=== PATIENT | female | born 1995 | race Caucasian/White ===

== ENCOUNTER → 2017-01-02 | Outpatient (CLI) | payer OTHER ==
[2017-01-02 13:00] LABS: BASO % 0.9 %; BASO ABS # 0.06 K/uL (0-0.2); COMPLETE YES; HEMATOCRIT 39.7 % (37-47); IG% 0.1 %; LYMPH % 38.8 %; LYMPH ABS # 2.59 K/uL (1.2-3.4); MEAN CELL VOLUME 86.1 fL (80-100); MEAN CORPUSCULAR HEMOGLOBIN 29.1 pg (25-34); MEAN CORPUSCULAR HGB CONC 33.8 g/dl (32-36); MEAN PLATELET VOLUME 9.7 fL (7.4-10.4); MONO % 10.5 %; NEUT % 45.7 %; PLATELET COUNT 318 K/uL (130-400); RED BLOOD COUNT 4.61 M/uL (4.2-5.4); WHITE BLOOD COUNT 6.67 K/uL (4.8-10.8)
== END | disposition home or self-care (01) ==
LOC: C.LABMFLN 11:12
PROVIDERS: ATTEND Family Medicine
DX: R59.0 Localized enlarged lymph nodes (principal)

== ENCOUNTER 2023-09-25 07:44 | Inpatient (IN) ==
[2023-09-25] MEDS ORDERED: LIDOCAINE 1% LOCAL 20 ML VIAL INFIL PRN (09:05)
[2023-09-25] MEDS ORDERED: ACETAMINOPHEN 325 MG TAB PO PRN ×2 (09:05→23:27)
[2023-09-25] MEDS ORDERED: ALBUTEROL HFA 8 GM INHALER INH PRN (09:07)
[2023-09-25] MEDS: LACTATED RINGER'S 1,000 ML IV PRN (09:51)
[2023-09-25] MEDS: PENICILLIN GK 6 MU in DEXTROSE 5% 250 ML IV STA (09:51)
[2023-09-25 09:57] LABS: Hematocrit (blood only) 41.2 % (37.0-47.0); Hemoglobin 14.1 g/dl (12.0-16.0); Mean Corpuscular Hemoglobin 30.5 pg (25.0-34.0); Mean Corpuscular Hgb Conc 34.2 g/dL (32.0-36.0); Mean Corpuscular Volume 89.2 fL (80.0-100.0); Mean Platelet Volume 11.6 fL (9.4-12.4); Platelet Count 206 K/uL (130-400); RDW Coefficient of Variation 13.4 % (11.5-14.5); RDW Standard Deviation 43.6 fL (36.4-46.3); Red Blood Count 4.62 M/uL (4.20-5.40); White Blood Count 10.65 K/ul (4.8-10.8)
[2023-09-25] MEDS: OXYTOCIN 30 UNITS/NSS 30 UNITS/500 ML BAG IV PRN ×2 (10:00→23:08)
--- NOTE | 2023-09-25 11:07 | History & Physical Report ---
Date of Service September 25, 2023 Assessment & Plan (1) Post term at 41 weeks gestation: Plan: Primigravida female presents for induction of labor because of postterm at 41 weeks. A cervical balloon was placed successfully and Pitocin induction per labor and delivery protocol was begun. Penicillin G prophylaxis has been begun as well. Epidural if requested. Anticipate vaginal . Admission and Anticipated Discharge Date Admission Date: September 25, 2023 History of Present Illness Primary Care Provider: Edgar Kenny MD Patient is a 27-year-old G1, P0 female EDC 09/18/2023 who presents at 41-0/7 weeks for induction because of postterm . has otherwise been uncomplicated. Blood type is O+. GBS is positive. Allergies Allergy/AdvReac Type Severity Reaction Status Date / Time clindamycin Allergy Intermediate Rash Verified 09/25/23 08:50 Home Medications Medication Instructions Recorded Confirmed Type albuterol sulfate 90 mcg/actuation 2 inh inhalation Q4H PRN mild 02/12/22 09/25/23 Rx aerosol inhaler intermittent asthma #18 grams loratadine PO 02/05/23 09/24/23 History 21-iron fu-folic acid 1 tab PO DAILY 02/05/23 09/25/23 History [ Complete] hydrocortisone 2.5 % topical cream 1 applic topical BID PRN skin 02/13/23 09/25/23 Rx irritation #453.6 grams omeprazole magnesium [Prilosec OTC] PO 07/21/23 09/24/23 History Nexium 1 tab PO DAILY 09/25/23 09/25/23 History Patient History Medical History Left otitis media Allergic rhinitis Allergic rhinitis Dysfunctional uterine bleeding Mild intermittent asthma in adult without complication Surgical History Hx of lymph node excision History of tonsillectomy No pertinent past surgical history Family History Mother Ldsta-5-sffdltsndmjawtur deficiency Denies family history of Ovarian cancer Breast cancer Colorectal cancer Social History Smoking Status: Never smoker Do You Dip or Chew Tobacco: No; Hx Alcohol Use: No Hx Substance Use: No Preferred Language: Pakistani Communication Ability: Effective Pipeman Required: No Beliefs That Will Affect Care: None marital status: marital status details: David Baxter (29) [phone] Current Living Situation: Spouse Current Living Situation Comment: Patient lives with spouse, dog current occupational status: employed current occupation: [employer] Feels Safe at Home: Yes Safety Concerns: Feels Safe At This Time Dental Care, Regularly: No Physical Activity Frequency: Does not Exercise Seatbelt Use: always Sunscreen Use: No Review of Systems All systems reviewed & are unremarkable except as noted in HPI & below Physical Exam Constitutional: WD/WN, vitals as above Psychiatric: A+Ox3, euthymic affect Genitourinary: OB Exam Abdomen: + fundal height (term) and + estimated weight (7-8 pounds) Manual OB Exam: + cervical dilation 2 cm, + cervical effacement 70% and + station -1 OB Exam Monitor Tracing: + external FHT monitor used, + external uterine monitor used, + category I and + normal FHT variability Speculum was placed in the cervix visualized. A El catheter was then threaded through the cervical os. 40 cc of sterile water was then instilled into the El balloon. The speculum was then removed, and the catheter placed on traction and secured to her left thigh. She tolerated the procedure well. Results & Data Vital Signs (Past 12 Hours) Vital Signs Temp Pulse Resp BP 09/25/23 09:56 88 133/83 09/25/23 08:29 99.0 F 137 H 20 117/88 09/25/23 08:02 137 H 117/88 09/25/23 08:01 20 09/25/23 08:01 99.0 F 20 Code Status & VTE Plan VTE Prophylaxis Plan VTE Prophylaxis will be ordered: No Coding Level of Care Code 36694 INT INP/OBS CARE MIN Diagnoses Post term at 41 weeks gestation O48.0; Z3A.41 CPT Codes Misx Procedure Codes - 70433 Placement of cervical dilator: 94422 Placement of c ervical dilator ([id number])
[2023-09-25] MEDS: PENICILLIN GK 3 MU in DEXTROSE 5% 100 ML IV PRN (13:51)
[2023-09-25] MEDS: ONDANSETRON INJ 2 MG/ML 2 ML VIAL IV PRN (16:07)
[2023-09-25] MEDS: LIDOCAINE 2%/EPINEPHRINE 1:200,000 20 ML PF ONE (17:19)
[2023-09-25] MEDS: BUPIVACAINE 0.25% PF 30 ML VIAL ONE (17:19)
[2023-09-25] MEDS: fentANYL 2 MCG/ML BUPIVacaine 0.125%-NSS 100ML BAG ONE (17:26)
--- NOTE | 2023-09-25 17:30 | Anesthesiology Consultation ---
Date of Service September 25, 2023 Assessment & Plan Chart Review Chart Review: Acceptable Risk for Labor Epidural Consults Requested none History Height/Weight Height: 5 ft 9 in Weight: 90.265 kg Allergies Allergy/AdvReac Type Severity Reaction Status Date / Time clindamycin Allergy Intermediate Rash Verified 09/25/23 08:50 Medications Home Medications Medication Instructions Recorded Confirmed Last Taken albuterol sulfate 90 mcg/actuation 2 inh inhalation Q4H PRN mild 02/12/22 09/25/23 Unknown aerosol inhaler intermittent asthma #18 grams loratadine PO 02/05/23 09/24/23 09/24/23 21:00 21-iron fu-folic acid 1 tab PO DAILY 02/05/23 09/25/23 09/24/23 21:00 [ Complete] hydrocortisone 2.5 % topical cream 1 applic topical BID PRN skin 02/13/23 09/25/23 Unknown irritation #453.6 grams omeprazole magnesium [Prilosec OTC] PO 07/21/23 09/24/23 Unknown Nexium 1 tab PO DAILY 09/25/23 09/25/23 09/24/23 07:00 Active Medications Generic Name Dose Route Start Last Admin Trade Name Freq PRN Reason Stop Dose Admin Lactated Ringer's 1,000 mls @ 125 mls/hr 09/25/23 09:05 09/25/23 17:13 Lr IV 09/27/23 09:04 999 mls/hr .Q8H PRN Administration L&D Protocol Protocol Penicillin G Potassium 3 mu/ 106 mls @ 100 mls/hr 09/25/23 12:05 09/25/23 13:51 Dextrose IV 10/05/23 12:04 100 mls/hr Q4H PRN Administration GBS(+) Until Delivery Oxytocin 30 units in 500 mls @ 8 mls/hr 09/25/23 09:11 09/25/23 16:15 Pitocin 30 Units/Nss IV 09/27/23 09:10 0.48 units/hr .Q24H PRN 8 mls/hr Labor Induction/Augmentation Titration Protocol 0.48 UNITS/HR Ondansetron HCl 4 mg 09/25/23 15:53 09/25/23 16:07 Ondansetron Inj 2 Mg/Ml 2 Ml Vial IV 10/25/23 15:52 4 mg Q6H PRN Administration Nausea And Vomiting Past Medical History Medical History Left otitis media Allergic rhinitis Allergic rhinitis Dysfunctional uterine bleeding Mild intermittent asthma in adult without complication Past Family History Family History Mother Fjpfu-1-iapmgusflybiwfyp deficiency Denies family history of Ovarian cancer Breast cancer Colorectal cancer Past Surgical History Surgical History Hx of lymph node excision History of tonsillectomy No pertinent past surgical history Social History Smoking Status: Never smoker Do You Dip or Chew Tobacco: No Hx Alcohol Use: No Hx Substance Use: No Physical Exam Vital Signs Last Vital Signs Temp 37.0 C 09/25/23 15:42 Pulse 92 H 09/25/23 17:29 Resp 18 09/25/23 15:42 BP 120/74 09/25/23 17:29 Pulse Ox 94 09/25/23 17:24 Testing Laboratory Results 09/25/23 09:41
[2023-09-25] MEDS ORDERED: ROPIVACAINE 0.5% PF 5 MG/ML 20 ML VIAL EPI PRN (17:31)
[2023-09-25] MEDS ORDERED: NALOXONE HCL 0.4 MG/1 ML VIAL/CARP IV PRN (17:31)
[2023-09-25] MEDS ORDERED: fentaNYL citrate PF 100 MCG/2 ML VIAL EPI PRN (17:31)
[2023-09-25] MEDS ORDERED: fentANYL 2 MCG/ML BUPIVacaine 0.125%-NSS 100ML BAG EPI PRN (17:31)
[2023-09-25] MEDS ORDERED: LIDOCAINE 2% MPF LOCAL 5 ML VIAL EPI PRN (17:31)
[2023-09-25] MEDS ORDERED: NALBUPHINE HCL 5 MG in SYRINGE 0 ML IV PRN (17:31)
[2023-09-25] MEDS ORDERED: ePHEDrine sulfate 50 MG/ML AMP IV PRN (17:31)
[2023-09-25] MEDS ORDERED: SODIUM CHLORIDE 0.9% PF INJ 10 ML VIAL EPI PRN (17:31)
[2023-09-25] MEDS ORDERED: BUPIVACAINE 0.25% PF 30 ML VIAL EPI PRN (17:31)
[2023-09-25] MEDS: SODIUM CHLORIDE 0.9% PF INJ 10 ML VIAL ONE (17:31)
[2023-09-25] MEDS ORDERED: NALOXONE HCL 1 MG in SODIUM CHLORIDE 0.9% 1,000 ML IV PRN (17:31)
[2023-09-25] MEDS ORDERED: diphenhydrAMINE 50 MG/ML VIAL IV PRN (17:31)
[2023-09-25] MEDS: fentaNYL citrate PF 100 MCG/2 ML VIAL ONE (17:32)
[2023-09-25] MEDS: BUTORPHANOL TARTRATE 2 MG/ML VIAL IV ONE (17:32)
[2023-09-25] MEDS: LIDOCAINE 2%/EPINEPHRINE 1:200,000 20 ML PF EPI STA (18:01)
[2023-09-25] MEDS: BUPIVACAINE 0.25% PF 30 ML VIAL EPI STA (18:01)
[2023-09-25] MEDS: fentaNYL citrate PF 100 MCG/2 ML VIAL EPI STA (18:01)
[2023-09-25] MEDS: SODIUM CHLORIDE 0.9% PF INJ 10 ML VIAL EPI STA (18:01)
[2023-09-25] MEDS: ePHEDrine sulfate 50 MG/ML AMP ONE (19:45)
[2023-09-25] MEDS ORDERED: OXYTOCIN 30 UNITS/NSS 30 UNITS/500 ML BAG IV PRN (23:27)
[2023-09-25] MEDS ORDERED: HYDROCORTISONE ACETATE 25 MG SUPP PR PRN (23:27)
[2023-09-25] MEDS: CALCIUM CARBONATE 500 MG CHEWABLE TAB PO PRN (23:27)
[2023-09-25] MEDS ORDERED: oxyCODONE/ACETAMINOPHEN 5mg/325mg TAB PO PRN (23:27)
[2023-09-25] MEDS ORDERED: BENZOCAINE 20% SPRY 85 APPLN/85 GM CAN EXT PRN (23:27)
--- NOTE | 2023-09-25 23:40 | Delivery Summary ---
Vaginal Delivery Summary Date of Service September 25, 2023 Vaginal Delivery Summary , 2nd Degree LAC (bilateral sulcal tears) and 3rd Degree LAC (partial) Patient is a 27-year-old 1 P0 female who presented for postdates induction. She received a cervical balloon and Pitocin induction per labor and delivery protocol was begun on admission. After the balloon was expelled, membranes were ruptured for clear fluid. She received effective epidural analgesia. She progressed to full dilation and pushed effectively over intact perineum for delivery of a viable female infant. After the head was delivered nuchal cord x 2 was reduced. The rest of the infant delivered without maternal effort. She was placed on the mother's abdomen for further attention and drying. She was vigorous and crying with stimulation. After 1 minute, the cord was clamped and cut. After cord blood was obtained, the placenta was initially delivering spontaneously, but gentle traction on the cord revealed no further movement of the placenta. it Was noted to be trapped in the cervix and was manu ally removed intact with a three-vessel cord. bleeding was controlled with fundal massage and dilute Pitocin. Bilateral sulcal tears and a partial third-degree tear was repaired with 2-0 chromic and 3-0 chromic in the usual fashion. QBL was 1140 mls. Mother and were doing well after delivery. [facility] [place] Vaginal Delivery Charge Delivery Type Details: , 2nd Degree LAC (bilateral sulcal tears) and 3rd Degree LAC (partial)
[2023-09-26] MEDS: DIPHTHER/TETAN/PERTUS Vaccine (Tdap, Adol/Adult) 0.5mL IM ONE (00:28)
[2023-09-26] MEDS ORDERED: METHYLERGONOVINE MALEATE 0.2 MG/ML AMP ONE (04:40)
[2023-09-26 17:40] LABS: Hematocrit (blood only) 34.8 % (37.0-47.0); Hemoglobin 11.9 g/dl (12.0-16.0); Mean Corpuscular Hemoglobin 30.4 pg (25.0-34.0); Mean Corpuscular Hgb Conc 34.2 g/dL (32.0-36.0); Mean Corpuscular Volume 88.8 fL (80.0-100.0); Mean Platelet Volume 11.8 fL (9.4-12.4); Platelet Count 184 K/uL (130-400); RDW Coefficient of Variation 13.3 % (11.5-14.5); RDW Standard Deviation 43.4 fL (36.4-46.3); Red Blood Count 3.92 M/uL (4.20-5.40); White Blood Count 19.17 K/ul (4.8-10.8)
[2023-09-26] MEDS: IBUPROFEN 600 MG TAB PO PRN (20:22)
[2023-09-26] MEDS: bisacodyL 5 MG TABEC PO SCH (20:22)
[2023-09-26] MEDS: DOCUSATE SODIUM 100 MG CAP PO SCH (20:22)
[2023-09-27 08:00] LABS: Hematocrit (blood only) 30.5 % (37.0-47.0); Hemoglobin 10.1 g/dl (12.0-16.0)
--- NOTE | 2023-09-27 08:19 | Obstetrical Progress Note ---
Date of Service <Gama Hernandez DO - Last Filed: 09/27/23 08:19> September 27, 2023 Assessment & Plan <Gama Hernandez DO - Last Filed: 09/27/23 08:19> (1) Encounter for assessment: Patient is PPD 2 s/p and PPH and doing well - Eating well, voiding well, ambulating well - vitals reviewed and within normal limits - pain well controlled with analgesics - Bleeding has decreased significantly - OOB, ambulation, diet progression as tolerated - Blood type: O+, GBS pos, rubella immune - Plan to discharge today - After discharge, 6 week follow up with OB visit type: exam and care immediately after delivery Qualified Code(s): Z39.0 - Encounter for care and examination of mother immediately after delivery <Beth Valentine MD - Last Filed: 09/29/23 10:28> (1) Encounter for assessment: Subjective <Gama Hernandez DO - Last Filed: 09/27/23 08:19> 27 yo post- day 2 s/p complicated by pph Ambulation: ambulating normally Voiding: no voiding problems Passing Gas:: Yes Diet Tolerance:: regular diet Lochia:: Small Feeding Type:: breast feeding Current Pain Level: 1/10 Resting comfortably this AM in NAD. Denies LOWERY, CP, SOB, N/V/D, LE pain/swelling. Physical Exam <Gama Hernandez DO - Last Filed: 09/27/23 08:19> General: patient resting comfortably, NAD, non-toxic in appearance, answers questions appropriately. Skin: warm, dry, intact HEENT: NC/AT, anicteric sclera, conjunctiva without injection, moist mucus membranes. Heart: +S1/S2, regular, no m/r/g Lungs: equal air entry bilaterally, no rales/rhonchi/wheezes Abd: +BS, soft, NT/ND, uterine fundus firm at umbilicus Ext: warm, no clubbing/cyanosis or edema, Rogerio's neg. Neuro: nonfocal, speech intact, no facial droop, moving all extremities. Results & Data <Gama Hernandez DO - Last Filed: 09/27/23 08:19> Vital Signs (Past 12 Hours) Vital Signs Temp Pulse Resp BP Pulse Ox O2 Del Method 09/26/23 23:15 36.7 C 85 18 119/78 98 Room Air Supervising Physician <Beth Valentine MD - Last Filed: 09/29/23 10:28> Co-Signing Physician Notes Resident Physician Supervision Note: I interviewed and examined the patient. Discussed with Dr. Hernandez and agree with findings and plan as documented in the note. Any exceptions or clarifications are listed here: [ ] Documented By: Beth Valentine MD, FACOG Resident Activity Tracking <Gama Hernandez DO - Last Filed: 09/27/23 08:19> Resident Involvement: Resident Care Provided Care Provided: OB Delivery
[2023-09-27] MEDS: PRENATAL VITAMIN 1 TAB PO SCH (09:28)
[2023-09-27] MEDS: PANTOprazole 40 MG TAB PO SCH (09:29)
[2023-09-27] MEDS ORDERED: bisacodyL 10 MG SUPP PR PRN (23:27)
== END 2023-09-27 13:00 | disposition home or self-care (01) | DRG 768 ==
LOC: 4S1 07:44 → 4E2 09-26 17:04
DX: Z3A.41 41 weeks gestation of pregnancy; O99.824 Streptococcus B carrier state complicating childbirth; O70.20 Third degree perineal laceration during delivery, unspecified; O69.81X0 Labor and delivery complicated by cord around neck, without compression, not applicable or unspecified; Z37.0 Single live birth; Z79.899 Other long term (current) drug therapy; B95.1 Streptococcus, group B, as the cause of diseases classified elsewhere; Z88.1 Allergy status to other antibiotic agents; O48.0 Post-term pregnancy